=== PATIENT | female | born 1960 | race African-American/Black ===

== ENCOUNTER 2025-05-04 06:29 | Day surgery (SDC) | payer BC, SELFPAY ==
[2025-04-21 11:32] LABS: Hematocrit 40.7 % (37.0-47.0); Hemoglobin 13.4 g/dL (12.0-16.0); Mean Corp Hgb Conc. 32.9 g/dL (33.0-37.0); Mean Corpuscular Volume 80.6 fL (81.0-99.0); Platelet Count 230 10^3/uL (130-400); Red Cell Dist. Width 14.1 % (11.5-14.5)
[2025-04-21 11:48] LABS: Blood Urea Nitrogen 10 mg/dl (7-17); Calcium 9.6 mg/dl (8.4-10.2); Carbon Dioxide 29 mmol/L (22-30); Chloride 108 mmol/L (98-107); Glucose 87 mg/dl (70-99); Potassium 4.2 mmol/L (3.5-5.1); Sodium 142 mmol/L (135-145); eGFR > 60.00
[2025-04-21 12:20] VITALS: BMI 26.7
[2025-05-04] VITALS (11 sets, daily range): BP systolic 141–179; BP diastolic 76–93; BMI 26.7
[2025-05-04] MEDS: NORMOSOL-R/PLASMALYTE-A 1000 IV (11:54)
[2025-05-04] MEDS: HEPARIN 5000 UNITS SC (12:09)
[2025-05-04] MEDS: DILAUDID 0.25 MG IV ×2 (16:25→16:36)
[2025-05-04] MEDS: ROXICODONE 5 MG PO (17:26)
== END 2025-05-04 19:30 | disposition home or self-care (01) ==
LOC: SDS 06:29
PROVIDERS: ATTENDING PHYSICIAN Obstetrics & Gynecology; FAMILY PHYSICIAN Family Medicine
DX: N81.2 Incomplete uterovaginal prolapse (principal); C53.9 Malignant neoplasm of cervix uteri, unspecified; N39.3 Stress incontinence (female) (male); N95.8 Other specified menopausal and perimenopausal disorders; N36.41 Hypermobility of urethra; D25.9 Leiomyoma of uterus, unspecified; N80.03 Adenomyosis of the uterus; D28.7 Benign neoplasm of other specified female genital organs
CPT/HCPCS: 57425; 58571; 57250; 57288; 36415; 80048; 85027; 86850; 86900; 86901; 88305; 88311; 88341; 88342; 93005; C1763; C1771